=== PATIENT | male | born 1960 | race Caucasian/White ===

== ENCOUNTER → 2023-07-14 06:53 | Outpatient (REF) | payer OTHER, SELFPAY | LOC: RAD 06:53 | PROVIDERS: ATTENDING PHYSICIAN Internal Medicine | DX: G45.4 Transient global amnesia (principal); R79.89 Other specified abnormal findings of blood chemistry; D58.2 Other hemoglobinopathies; Z12.5 Encounter for screening for malignant neoplasm of prostate | CPT/HCPCS: 70450 ==

== ENCOUNTER → 2025-04-06 13:02 | Outpatient (REF) | payer BC, SELFPAY | LOC: RAD 13:02 | PROVIDERS: ATTENDING PHYSICIAN Internal Medicine | DX: M25.512 Pain in left shoulder (principal); G89.29 Other chronic pain | CPT/HCPCS: 73030 ==

== ENCOUNTER → 2025-04-19 07:21 | Outpatient (REF) | payer BC, SELFPAY | LOC: HWRAD 07:21 | PROVIDERS: ATTENDING PHYSICIAN Internal Medicine | DX: R74.01 Elevation of levels of liver transaminase levels (principal) | CPT/HCPCS: 76700 ==